=== PATIENT | female | born 1995 | race Caucasian/White ===

== ENCOUNTER 2017-03-20 19:17 | Emergency (ER) | payer OTHER ==
[~2017-03-20] VITALS: Ht 160 cm; Wt 61.4 kg
[~2017-03-20 19:17] MED LIST: FLEXERIL 1010 MG/TAB PO; NAPROSYN500 MG PO; NEXPLANON68 MG ID; NORCO 325 MG-51 TAB PO; ORTHO TRI-CYCLE1 TAB PO; XANAX .25M0.25 MG/TA PO
[2017-03-20 19:23] VITALS: TEMP 98.2
[2017-03-20] MEDS ORDERED: TOPAMAX 25MG25 M1 PO (19:27)
[2017-03-20] MEDS ORDERED: NIRAVAM1 MG PO (19:27)
[2017-03-20] MEDS ORDERED: WELLBUTRIN SR150 M1 PO (19:28)
[2017-03-20] MEDS ORDERED: BUSPAR10 MG PO (19:28)
[2017-03-20] MEDS ORDERED: ATARAX 10MG10 MG/TAB PO (19:28)
[2017-03-20 20:24] LABS: BASO # 0.1 (0.0-0.2); EOS # 0.4 (0.0-0.7); EOS % 5.6 % (0-4.0); GRAN # 3.5 (1.4-6.5); GRAN % 48.1 % (42.2-75.2); HEMATOCRIT 43.1 % (37.0-47.0); HEMOGLOBIN 14.9 g/dl (12.5-16.0); LYMPH # 2.8 (1.2-3.4); LYMPH % 38.5 % (20.0-51.0); MEAN CELL VOLUME 93 fl (80.0-100.0); MEAN CORPUSCULAR HEMOGLOBIN 32 pg (27.0-31.0); MEAN CORPUSCULAR HGB CONC 35 g/dl (33.0-37.0); MEAN PLATELET VOLUME 10.5 fl (7.4-10.4); MONO # 0.5 (0.1-0.6); MONO % 6.7 % (1.7-9.3); PLATELET COUNT 312 K/mm3 (130-400); RED BLOOD COUNT 4.62 M/mm3 (4.10-5.30); REDCELL DISTRIBUTION WIDTH-CV 12.2 % (11.5-14.5); WHITE BLOOD COUNT 7.3 K/mm3 (4.8-10.8)
[2017-03-20 20:25] LABS: AMPHETAMINE URINE NEGATIVE; BARBITURATES URINE NEGATIVE; BENZODIAZEPINES URINE POSITIVE; BUPRENORPHINE URINE NEGATIVE; METHADONE URINE NEGATIVE; OPIATES URINE NEGATIVE; OXYCODONE URINE NEGATIVE; PHENCYCLIDINE URINE NEGATIVE; PROPOXYPHENE URINE NEGATIVE; THC CANNABINOIDS URINE POSITIVE
[2017-03-20 20:34] LABS: ANION GAP 14 mmol/L (7-16); BLOOD UREA NITROGEN 10 mg/dL (7-17); CALCIUM 9.5 mg/dL (8.4-10.2); CARBON DIOXIDE 22 mmol/L (22-30); CHLORIDE 107 mmol/L (98-107); CREATININE, serum 0.83 mg/dL (0.52-1.25); GLUCOSE 66 mg/dL (74-106); POTASSIUM 3.3 mmol/L (3.4-5.0); SODIUM 143 mmol/L (137-145)
[2017-03-20 20:42] LABS: ACETAMINOPHEN < 10 ug/mL (10-30); SALICYLATE < 1.0 mg/dL
[2017-03-21 04:35] VITALS: BP 105/65; PULSE 71
== END 2017-03-21 05:28 ==
LOC: COL.ER 19:17
PROVIDERS: Physician Assistant
DX: F41.9 Anxiety disorder, unspecified (principal); R45.851 Suicidal ideations

== ENCOUNTER → 2017-07-10 | Outpatient (CLI) | payer OTHER ==
[~2017-07-10] MED LIST changes: +ATARAX 10MG10 MG/TAB PO; +BUSPAR10 MG PO; +NIRAVAM1 MG PO; +TOPAMAX 25MG25 M1 PO; +WELLBUTRIN SR150 M1 PO
[2017-07-10 17:56] LABS: BASO # 0.1 (0.0-0.2); BASO % 0.8 % (0.0-2.0); EOS # 0.4 (0.0-0.7); EOS % 4.2 % (0-4.0); GRAN # 5.9 (1.4-6.5); GRAN % 63.7 % (42.2-75.2); HEMOGLOBIN 13.4 g/dl (12.5-16.0); LYMPH # 2.3 (1.2-3.4); LYMPH % 24.2 % (20.0-51.0); MEAN CELL VOLUME 97 fl (80.0-100.0); MEAN CORPUSCULAR HEMOGLOBIN 32 pg (27.0-31.0); MEAN CORPUSCULAR HGB CONC 34 g/dl (33.0-37.0); MEAN PLATELET VOLUME 10.5 fl (7.4-10.4); MONO # 0.6 (0.1-0.6); MONO % 6.7 % (1.7-9.3); PLATELET COUNT 291 K/mm3 (130-400); RED BLOOD COUNT 4.13 M/mm3 (4.10-5.30); REDCELL DISTRIBUTION WIDTH-CV 12.3 % (11.5-14.5)
[2017-07-10 18:08] LABS: C-REACTIVE PROTEIN < 0.5 mg/dL (0.0-0.9)
[2017-07-10 18:18] LABS: TROPONIN-I < 0.012 ng/mL (0.000-0.034)
[2017-07-10 19:05] LABS: ERYTHROCYTE SEDIMENTATION RATE 1 mm/hr (0-20)
== END ==
LOC: COL.LAB 15:42
DX: R07.89 Other chest pain (principal)

== ENCOUNTER 2019-08-24 14:36 | Emergency (ER) | payer OTHER ==
[~2019-08-24] VITALS: Ht 160 cm; Wt 59.5 kg
[2019-08-24 14:57] VITALS: BP 118/78; PULSE 82; TEMP 97.4
== END 2019-08-24 15:33 | disposition home or self-care (01) ==
LOC: COL.ER 14:36
DX: S61.213A Laceration without foreign body of left middle finger without damage to nail, initial encounter (principal); F31.9 Bipolar disorder, unspecified; Z23 Encounter for immunization; W26.8XXA Contact with other sharp object(s), not elsewhere classified, initial encounter; Y92.59 Other trade areas as the place of occurrence of the external cause

== ENCOUNTER 2020-01-02 18:17 | Emergency (ER) | payer OTHER ==
[~2020-01-02] VITALS: Ht 162.6 cm; Wt 72.7 kg
[2020-01-02 18:22] VITALS: TEMP 98.2
[2020-01-02 19:02] LABS: BASO % 0.1 % (0.0-2.0); EOS # 0.6 (0.0-0.7); EOS % 5.4 % (0-4.0); GRAN # 6.2 (1.4-6.5); HEMATOCRIT 38.3 % (37.0-47.0); HEMOGLOBIN 12.7 g/dl (12.5-16.0); LYMPH # 2.7 (1.2-3.4); LYMPH % 26.2 % (20.0-51.0); MEAN CELL VOLUME 98 fl (80.0-100.0); MEAN CORPUSCULAR HEMOGLOBIN 32 pg (27.0-31.0); MEAN CORPUSCULAR HGB CONC 33 g/dl (33.0-37.0); MEAN PLATELET VOLUME 9.9 fl (7.4-10.4); MONO # 0.7 (0.1-0.6); MONO % 7.1 % (1.7-9.3); PLATELET COUNT 314 K/mm3 (130-400); RED BLOOD COUNT 3.92 M/mm3 (4.10-5.30); REDCELL DISTRIBUTION WIDTH-CV 12.1 % (11.5-14.5)
[2020-01-02 19:10] LABS: ALANINE AMINOTRANSFERASE 22 U/L (9-52); ALKALINE PHOSPHATASE 40 U/L (50-136); ANION GAP 9 mmol/L (7-16); AST,SGOT 22 U/L (15-37); BILIRUBIN,TOTAL 0.4 mg/dL (0.0-1.0); BLOOD UREA NITROGEN 15 mg/dL (7-17); CARBON DIOXIDE 25 mmol/L (22-30); CHLORIDE 107 mmol/L (98-107); GLUCOSE 82 mg/dL (74-106); LIPASE 87 U/L (23-300); SODIUM 140 mmol/L (137-145); TOTAL PROTEIN 6.7 gm/dL (6.4-8.2)
[2020-01-02 19:11] LABS: C-REACTIVE PROTEIN < 0.5 mg/dL (0.0-0.9)
[2020-01-02] MEDS ORDERED: ZOFRAN ODT4 MG PO (20:05)
[2020-01-02 20:18] VITALS: BP 107/76
[2020-01-02 20:47] VITALS: PULSE 60
== END 2020-01-02 20:47 | disposition home or self-care (01) ==
LOC: COL.ER 18:17
PROVIDERS: Emergency Medicine
DX: R19.7 Diarrhea, unspecified (principal); R11.10 Vomiting, unspecified; F31.9 Bipolar disorder, unspecified; F41.9 Anxiety disorder, unspecified
CPT/HCPCS: J1885; J2405; J7030

== ENCOUNTER → 2023-12-17 | Outpatient (CLI) | payer OTHER ==
[~2023-12-17] MED LIST changes: +ZOFRAN ODT4 MG PO
== END ==
LOC: MC.RAD 07:41
DX: N63.12 Unspecified lump in the right breast, upper inner quadrant (principal)